=== PATIENT | male | born 1955 | race Caucasian/White ===

== ENCOUNTER 2024-07-28 14:17 | Inpatient (IN) | payer OTHER ==
[~2024-07-28] VITALS: Ht 188 cm; Wt 98.0 kg
[2024-07-28] MEDS: TraMADol HCL 50 MG TABLET PO ONE (15:25)
[2024-07-28 15:43] LABS: BASOPHILS % (AUTO) 1.5 % (0.0-2.0); EOSINOPHILS % (AUTO) 3.9 % (1.0-6.0); HEMOGLOBIN 12.7 g/dL (13.5-17.5); LYMPHOCYTES # (AUTO) 1.1 K/uL (1.0-4.8); LYMPHOCYTES % (AUTO) 19.3 % (22.0-44.0); MEAN CORPUSCULAR HEMOGLOBIN 30.2 pg (26.0-34.0); MEAN CORPUSCULAR HGB CONC 32.5 G/dL (31.0-37.0); MEAN CORPUSCULAR VOLUME 93 fL (80-100); MONOCYTES # (AUTO) 0.9 K/uL (0.1-1.0); MONOCYTES % (AUTO) 15.6 % (2.0-9.0); NEUTROPHILS # (AUTO) 3.4 K/uL (1.8-7.7); NEUTROPHILS % (AUTO) 59.7 % (40.0-70.0); PLATELET COUNT (AUTO) 153 K/uL (150-450); RED CELL DISTRIBUTION WIDTH 14.9 % (11.5-14.5); WHITE BLOOD COUNT (AUTO) 5.6 K/uL (4.5-11.0)
[2024-07-28 16:00] LABS: CALCIUM, TOTAL 8.9 mg/dL (8.8-10.5); CREATININE 6.41 mg/dL (0.60-1.30)
[2024-07-28 16:06] LABS: ALBUMIN 3.2 g/dL (3.4-5.0); BILIRUBIN,DIRECT 0.1 mg/dL (0.00-0.20); BILIRUBIN,TOTAL 0.8 mg/dL (0.1-1.0); TOTAL PROTEIN, SERUM 7.4 g/dL (6.4-8.2)
[2024-07-28 16:10] LABS: TROPONIN I-HIGH SENSITIVITY 16 ng/L (<76)
[2024-07-28 16:24] LABS: APPEARANCE,URINE CLEAR (CLEAR); BILIRUBIN,URINE NEGATIVE (NEGATIVE); COLOR,URINE COLORLESS (YELLOW); GLUCOSE, URINE (UA) 150-200 mg/dL (NEGATIVE); KETONES,URINE NEGATIVE (NEGATIVE); LEUKOCYTE ESTERASE ,URINE NEGATIVE (NEGATIVE); NITRATE,URINE NEGATIVE (NEGATIVE); OCCULT BLOOD,URINE SMALL (NEGATIVE); PROTEIN,URINE 100-200,SEE CONFIRM mg/dL (NEGATIVE); SPECIFIC GRAVITIY, URINE 1.009 (1.003-1.030); UROBILINOGEN,URINE <=1.0 mg/dL (<=1.0)
[2024-07-28 16:37] LABS: SULFOSALICYLIC ACID,URINE 3+ (Negative)
[2024-07-28 16:38] LABS: WBC,URINE 0-2 /HPF (0-5)
[2024-07-28 16:39] LABS: BACTERIA,URINE None Seen /HPF (None Seen)
[2024-07-28] MEDS ORDERED: ONDANSETRON HCL 4 MG/2 ML VIAL IVP PRN (20:15)
[2024-07-28] MEDS ORDERED: ZOLPIDEM TARTRATE 5 MG TABLET PO PRN (20:15)
[2024-07-28] MEDS ORDERED: BISACODYL 10 MG RECTAL RECTAL SUPPOSITORY PR PRN (20:15)
[2024-07-28] MEDS ORDERED: MAGNESIUM HYDROXIDE SUSPENSION 30 ML UDCUP PO PRN (20:15)
[2024-07-28] MEDS ORDERED: MORPHINE SULFATE 2 MG/ML SYRINGE IVP PRN (20:15)
[2024-07-28] MEDS: SODIUM CHLORIDE 0.9% 1,000 ML IV ONE (22:25)
[2024-07-28] MEDS: DOCUSATE SODIUM 100 MG CAPSULE PO SCH (22:25)
[2024-07-28 22:30] VITALS: BP 114/81; PULSE 95; RESP 18; TEMP 95.5; O2SAT 97
[2024-07-29] VITALS (11 sets, daily range): BP systolic 136–155; BP diastolic 87–109; PULSE 69–102; RESP 18–20; TEMP 97–98; O2SAT 20–99
[2024-07-29] MEDS: HEPARIN SODIUM,PORCINE 5,000 UNITS/ML VIAL SQ SCH
[2024-07-29] MEDS: TAMSULOSIN HCL 0.4 MG CAPSULE PO SCH (00:10)
[2024-07-29] MEDS: HYDROCODONE/ACETAMINOPHEN 5-325 MG TABLET PO PRN (03:43)
[2024-07-29 07:29] LABS: BASOPHILS % (AUTO) 0.7 % (0.0-2.0); EOSINOPHILS % (AUTO) 5.4 % (1.0-6.0); HEMATOCRIT 36.5 % (41-53); LYMPHOCYTES # (AUTO) 1.1 K/uL (1.0-4.8); LYMPHOCYTES % (AUTO) 20.8 % (22.0-44.0); MEAN CORPUSCULAR HEMOGLOBIN 30.3 pg (26.0-34.0); MEAN CORPUSCULAR HGB CONC 32.8 G/dL (31.0-37.0); MEAN CORPUSCULAR VOLUME 92 fL (80-100); MONOCYTES # (AUTO) 0.8 K/uL (0.1-1.0); MONOCYTES % (AUTO) 14.1 % (2.0-9.0); NEUTROPHILS # (AUTO) 3.2 K/uL (1.8-7.7); PLATELET COUNT (AUTO) 145 K/uL (150-450); RED BLOOD CELL COUNT(AUTO) 3.95 MIL/uL (4.50-5.90); RED CELL DISTRIBUTION WIDTH 14.8 % (11.5-14.5); WHITE BLOOD COUNT (AUTO) 5.4 K/uL (4.5-11.0)
[2024-07-29 07:37] LABS: CALCIUM, TOTAL 8.6 mg/dL (8.8-10.5); CREATININE 7.29 mg/dL (0.60-1.30); POTASSIUM 5.1 mmol/L (3.5-5.1)
[2024-07-29] MEDS: PANTOPRAZOLE SODIUM 40 MG DR TABLET PO SCH (08:14)
[2024-07-29] MEDS: ACETAMINOPHEN 325 MG TABLET PO PRN (08:18)
[2024-07-29] MEDS ORDERED: SEVE800T38 PO (09:53)
[2024-07-29] MEDS ORDERED: HYDR10TA31 PO (09:53)
[2024-07-29] MEDS ORDERED: FURO20 PO (09:53)
[2024-07-29] MEDS ORDERED: NITR0.4T52 SL (09:53)
[2024-07-29] MEDS ORDERED: PARI5VIA7 IVP (09:53)
[2024-07-29] MEDS ORDERED: AMLO-258 PO (09:53)
[2024-07-29] MEDS ORDERED: LORA10TA7 PO (09:53)
[2024-07-29] MEDS ORDERED: [UNRECOGNIZED DRUG - CODE] SQ (09:53)
[2024-07-29] MEDS ORDERED: CARV25 PO (09:53)
[2024-07-29] MEDS ORDERED: LOSA-382 PO (09:53)
[2024-07-29] MEDS: SEVELAMER CARBONATE 800 MG TABLET PO SCH (12:10)
[2024-07-29] MEDS: HydrALAZINE HCL 10 MG TABLET PO SCH (18:30)
[2024-07-29] MEDS: FUROSEMIDE 20 MG TABLET PO SCH (20:34)
[2024-07-29] MEDS: CARVEDILOL 25 MG TABLET PO SCH (20:34)
[2024-07-30 00:28] VITALS: BP 123/65; PULSE 84; RESP 20; TEMP 98.5; O2SAT 98
[2024-07-30 04:53] VITALS: BP 149/89; PULSE 94; RESP 20; TEMP 97.9; O2SAT 93
[2024-07-30 06:57] LABS: BASOPHILS % (AUTO) 0.8 % (0.0-2.0); EOSINOPHILS % (AUTO) 5.9 % (1.0-6.0); HEMATOCRIT 39.7 % (41-53); HEMOGLOBIN 13.1 g/dL (13.5-17.5); LYMPHOCYTES % (AUTO) 18.6 % (22.0-44.0); MEAN CORPUSCULAR HEMOGLOBIN 30.3 pg (26.0-34.0); MEAN CORPUSCULAR VOLUME 92 fL (80-100); MONOCYTES # (AUTO) 0.7 K/uL (0.1-1.0); MONOCYTES % (AUTO) 12.9 % (2.0-9.0); NEUTROPHILS # (AUTO) 3.5 K/uL (1.8-7.7); NEUTROPHILS % (AUTO) 61.8 % (40.0-70.0); PLATELET COUNT (AUTO) 180 K/uL (150-450); RED BLOOD CELL COUNT(AUTO) 4.33 MIL/uL (4.50-5.90); RED CELL DISTRIBUTION WIDTH 14.8 % (11.5-14.5); WHITE BLOOD COUNT (AUTO) 5.6 K/uL (4.5-11.0)
[2024-07-30 06:58] LABS: CALCIUM, TOTAL 9.2 mg/dL (8.8-10.5); CHOL/HDL RATIO 2.2 (4.2-7.3); CREATININE 5.95 mg/dL (0.60-1.30); POTASSIUM 5.2 mmol/L (3.5-5.1)
[2024-07-30 07:53] VITALS: BP 149/94; PULSE 79; RESP 20; TEMP 98.1; O2SAT 98
[2024-07-30] MEDS: AmLODIPine BESYLATE 10 MG TABLET PO SCH (08:04)
[2024-07-30] MEDS: LORATADINE 10 MG TABLET PO SCH (08:04)
[2024-07-30] MEDS: LOSARTAN POTASSIUM 50 MG TABLET PO SCH (08:09)
[2024-07-30] MEDS ORDERED: EPOE10006 SQ (12:07)
[2024-07-30] MEDS ORDERED: FURO80 PO (12:11)
[2024-07-30] MEDS ORDERED: TAMS0.4C94 PO (12:12)
[2024-07-30] MEDS ORDERED: ACET-2247 PO (12:13)
[2024-07-30] MEDS ORDERED: BISA10SU11 PR (12:13)
[2024-07-30] MEDS ORDERED: SODI5POW3 PO (12:16)
[2024-07-30] MEDS: SODIUM ZIRCONIUM CYCLOSILICATE 5 GM POWDER PACKET PO SCH (12:41)
[2024-07-30 13:15] VITALS: BP 153/88; PULSE 75; RESP 20; TEMP 98.2; O2SAT 98
[2024-07-30] MEDS ORDERED: FUROSEMIDE 20 MG TABLET PO SCH (21:00)
[2024-08-02 01:07] LABS: HEPATITIS C AB (EIA) Non Reactive (Non Reactive)
== END 2024-07-30 17:50 | DRG 438 ==
LOC: EMS 14:17 → EDH 20:19 → 6S 22:37 → 5S 07-29 16:30 → 5N 07-29 17:30
PROVIDERS: ADMIT Internal Medicine; ATTEND Internal Medicine
PROC: 5A1D70Z Performance of Urinary Filtration, Intermittent, Less than 6 Hours Per Day (ICD-10-PCS; principal; 2024-07-29)
DX: K85.90 Acute pancreatitis without necrosis or infection, unspecified (principal); N18.6 End stage renal disease; I12.0 Hypertensive chronic kidney disease with stage 5 chronic kidney disease or end stage renal disease; R34 Anuria and oliguria; Z99.2 Dependence on renal dialysis; I48.0 Paroxysmal atrial fibrillation; E11.22 Type 2 diabetes mellitus with diabetic chronic kidney disease; E78.00 Pure hypercholesterolemia, unspecified; E87.5 Hyperkalemia; D63.1 Anemia in chronic kidney disease; I25.10 Atherosclerotic heart disease of native coronary artery without angina pectoris; N40.1 Benign prostatic hyperplasia with lower urinary tract symptoms; R33.8 Other retention of urine; E87.6 Hypokalemia; Z79.899 Other long term (current) drug therapy; Z91.010 Allergy to peanuts
CPT/HCPCS: 74176; 76770; 76870; 80048; 80061; 80076; 81001; 81002; 83690; 84484; 85025; 86803; 87081; 87340; 90935; 93005; 99285; J1644

== ENCOUNTER 2024-11-29 16:04 | Inpatient (IN) | payer OTHER ==
[~2024-11-29] VITALS: Ht 188 cm; Wt 108.7 kg
[2024-11-29] VITALS (7 sets, daily range): BP systolic 113–133; BP diastolic 76–113; PULSE 99–116; RESP 18; TEMP 97.9; O2SAT 96–100
[~2024-11-29 16:04] MED LIST: ACET-2247 PO; AMLO-258 PO; BISA10SU11 PR; CARV25 PO; EPOE10006 SQ; FURO80TA4 PO; HYDR10TA31 PO; LORA10TA7 PO; LOSA-382 PO; NITR0.4T52 SL; PARI5VIA IVP; SEVE800T38 PO; SODI5POW3 PO; TAMS0.4C94 PO
[2024-11-29] MEDS: AMOX TR/POT CLAV 875 MG/125 MG TABLET PO ONE (18:13)
[2024-11-29 18:22] LABS: CALCIUM, TOTAL 9.6 mg/dL (8.8-10.5); CREATININE 6.82 mg/dL (0.60-1.30)
[2024-11-29 18:24] LABS: BASOPHILS % (AUTO) 1.2 % (0.0-2.0); HEMATOCRIT 31.7 % (41-53); HEMOGLOBIN 10.3 g/dL (13.5-17.5); LYMPHOCYTES % (AUTO) 8.9 % (22.0-44.0); MEAN CORPUSCULAR HEMOGLOBIN 31.2 pg (26.0-34.0); MEAN CORPUSCULAR HGB CONC 32.4 G/dL (31.0-37.0); MEAN CORPUSCULAR VOLUME 96 fL (80-100); MONOCYTES % (AUTO) 8.8 % (2.0-9.0); NEUTROPHILS # (AUTO) 7.6 K/uL (1.8-7.7); NEUTROPHILS % (AUTO) 68.1 % (40.0-70.0); PLATELET COUNT (AUTO) 268 K/uL (150-450); RED BLOOD CELL COUNT(AUTO) 3.29 MIL/uL (4.50-5.90); RED CELL DISTRIBUTION WIDTH 21.5 % (11.5-14.5); WHITE BLOOD COUNT (AUTO) 11.1 K/uL (4.5-11.0)
[2024-11-29] MEDS: SODIUM ZIRCONIUM CYCLOSILICATE 5 GM POWDER PACKET PO ONE (19:07)
[2024-11-29] MEDS: CALCIUM GLUCONATE 100 MG/ML 10 ML IVP ONE (19:08)
[2024-11-29] MEDS: INSULIN REGULAR, HUMAN 100 UNITS/ML IVP ONE (19:08)
[2024-11-29] MEDS: DEXTROSE 50%-WATER 25 GM/50 ML SYRINGE IVP ONE (19:09)
[2024-11-29] MEDS: DOXYCYCLINE HYCLATE 100 MG TABLET PO ONE (19:09)
[2024-11-29] MEDS ORDERED: NITROGLYCERIN 0.4 MG SUBLINGUAL TABLET #25 SL PRN (19:15)
[2024-11-29] MEDS ORDERED: ONDANSETRON HCL 4 MG/2 ML VIAL IVP PRN (19:15)
[2024-11-29] MEDS ORDERED: BISACODYL 10 MG RECTAL RECTAL SUPPOSITORY PR PRN (19:15)
[2024-11-29] MEDS ORDERED: VANCOMYCIN 1GM/WATER(PEG/NADA) 200 ML IV PRN (20:00)
[2024-11-29] MEDS: DOCUSATE SODIUM 100 MG CAPSULE PO SCH (20:07)
[2024-11-29] MEDS: VANCOMYCIN 1.75GM/WATER(PEG) 350 ML IV ONE (20:10)
[2024-11-29] MEDS: CARVEDILOL 25 MG TABLET PO SCH (20:11)
[2024-11-29] MEDS: TAMSULOSIN HCL 0.4 MG CAPSULE PO SCH (20:11)
[2024-11-29] MEDS: FUROSEMIDE 80 MG TABLET PO SCH (20:11)
[2024-11-29] MEDS: HydrALAZINE HCL 10 MG TABLET PO SCH (20:11)
[2024-11-29] MEDS: DiphenhydrAMINE HCL 25 MG CAPSULE PO ONE (21:11)
[2024-11-29 21:20] LABS: CALCIUM, TOTAL 9.4 mg/dL (8.8-10.5); CREATININE 7.04 mg/dL (0.60-1.30); POTASSIUM 5.7 mmol/L (3.5-5.1)
[2024-11-30] VITALS (8 sets, daily range): BP systolic 118–147; BP diastolic 72–101; PULSE 107–123; RESP 18–20; TEMP 97.8–98.8; O2SAT 94–97
[2024-11-30] MEDS: HEPARIN SODIUM,PORCINE 5,000 UNITS/ML VIAL SQ SCH
[2024-11-30] MEDS: SODIUM POLYSTYRENE SULFONATE 15 GM/60 ML SUSPENSION BOTTLE PO ONE (02:00)
[2024-11-30] MEDS: ACETAMINOPHEN 325 MG TABLET PO PRN (02:40)
[2024-11-30] MEDS ORDERED: INFLUENZA VIRUS VACCINE TVS (6MO+) 2024-25/PF 45 MCG/0.5 ML SYRINGE IM. ONE (07:00)
[2024-11-30 07:24] LABS: BASOPHILS % (AUTO) 1.1 % (0.0-2.0); EOSINOPHILS % (AUTO) 12.3 % (1.0-6.0); HEMATOCRIT 31.6 % (41-53); HEMOGLOBIN 10.4 g/dL (13.5-17.5); LYMPHOCYTES # (AUTO) 0.4 K/uL (1.0-4.8); LYMPHOCYTES % (AUTO) 4.2 % (22.0-44.0); MEAN CORPUSCULAR HEMOGLOBIN 31.7 pg (26.0-34.0); MEAN CORPUSCULAR VOLUME 96 fL (80-100); MONOCYTES # (AUTO) 0.6 K/uL (0.1-1.0); MONOCYTES % (AUTO) 6.3 % (2.0-9.0); NEUTROPHILS % (AUTO) 76.1 % (40.0-70.0); PLATELET COUNT (AUTO) 211 K/uL (150-450); RED BLOOD CELL COUNT(AUTO) 3.29 MIL/uL (4.50-5.90); RED CELL DISTRIBUTION WIDTH 20.8 % (11.5-14.5); WHITE BLOOD COUNT (AUTO) 9.2 K/uL (4.5-11.0)
[2024-11-30 07:31] LABS: CALCIUM, TOTAL 9.4 mg/dL (8.8-10.5); CREATININE 5.12 mg/dL (0.60-1.30); MAGNESIUM 1.9 mg/dL (1.80-2.40); POTASSIUM 4.7 mmol/L (3.5-5.1)
[2024-11-30] MEDS: EPOETIN ALFA 10,000 UNITS/ML VIAL SQ SCH (08:41)
[2024-11-30] MEDS: AmLODIPine BESYLATE 10 MG TABLET PO SCH (08:42)
[2024-11-30] MEDS: SEVELAMER CARBONATE 800 MG TABLET PO SCH (08:43)
[2024-11-30] MEDS ORDERED: LOSARTAN POTASSIUM 50 MG TABLET PO SCH (09:00)
[2024-11-30] MEDS ORDERED: SODIUM ZIRCONIUM CYCLOSILICATE 5 GM POWDER PACKET PO SCH (09:00)
[2024-11-30] MEDS: PARICALCITOL 5 MCG/1 ML VIAL IVP SCH (10:14)
[2024-11-30] MEDS: DiphenhydrAMINE HCL 50 MG/ML VIAL IVP ONE (10:14)
[2024-11-30] MEDS: DiphenhydrAMINE/ZINC ACET 30 GM CREAM TP SCH (11:50)
[2024-11-30] MEDS: PERMETHRIN 5% 60 GM CREAM TP ONE (11:50)
[2024-11-30] MEDS: LORATADINE 10 MG TABLET PO SCH (17:59)
[2024-11-30] MEDS: MORPHINE SULFATE 2 MG/ML SYRINGE IVP ONE (20:04)
[2024-12-01] MEDS: DiphenhydrAMINE HCL 50 MG/ML VIAL IVP PRN (03:09)
[2024-12-01 03:16] VITALS: BP 139/99; PULSE 105; RESP 20; TEMP 97.6; O2SAT 95
[2024-12-01 07:04] LABS: CREATININE 6.46 mg/dL (0.60-1.30); POTASSIUM 5.6 mmol/L (3.5-5.1); VANCOMYCIN,RANDOM 14.7 mcg/mL (25.0-50.0)
[2024-12-01] MEDS: DiphenhydrAMINE HCL 25 MG CAPSULE PO PRN (09:14)
[2024-12-01] MEDS: ASPIRIN 81 MG CHEWABLE TABLET PO SCH (12:15)
[2024-12-01] MEDS: OxyCODONE HCL/ACETAMINOPHEN 5-325 MG TABLET PO PRN (12:27)
[2024-12-01] MEDS: PERMETHRIN 5% 60 GM CREAM TP ONE (14:32)
[2024-12-01] MEDS: VANCOMYCIN 1GM/WATER(PEG/NADA) 200 ML IV ONE (15:56)
[2024-12-01 16:00] VITALS: BP 129/86; PULSE 111; RESP 18; TEMP 97.6; O2SAT 98
[2024-12-01] MEDS ORDERED: SODIUM CHLORIDE 0.9% 500 ML IV ONE (16:25)
[2024-12-02] VITALS (10 sets, daily range): BP systolic 117–187; BP diastolic 74–173; PULSE 81–104; RESP 18–19; TEMP 98–98.5; O2SAT 94–98
[2024-12-02 12:13] LABS: HEMATOCRIT 29.6 % (41-53); HEMOGLOBIN 9.5 g/dL (13.5-17.5); LYMPHOCYTES # (AUTO) 0.6 K/uL (1.0-4.8); LYMPHOCYTES % (AUTO) 9.6 % (22.0-44.0); MEAN CORPUSCULAR HEMOGLOBIN 30.5 pg (26.0-34.0); MEAN CORPUSCULAR HGB CONC 32.1 G/dL (31.0-37.0); MEAN CORPUSCULAR VOLUME 95 fL (80-100); MONOCYTES # (AUTO) 0.6 K/uL (0.1-1.0); MONOCYTES % (AUTO) 9.8 % (2.0-9.0); NEUTROPHILS # (AUTO) 3.4 K/uL (1.8-7.7); NEUTROPHILS % (AUTO) 58.4 % (40.0-70.0); PLATELET COUNT (AUTO) 183 K/uL (150-450); RED BLOOD CELL COUNT(AUTO) 3.12 MIL/uL (4.50-5.90); RED CELL DISTRIBUTION WIDTH 20.1 % (11.5-14.5); WHITE BLOOD COUNT (AUTO) 5.9 K/uL (4.5-11.0)
[2024-12-02 12:15] LABS: EOSINOPHILS % (AUTO) 21.2 % (1.0-6.0)
[2024-12-02 12:35] LABS: CALCIUM, TOTAL 8.9 mg/dL (8.8-10.5); CREATININE 4.94 mg/dL (0.60-1.30); POTASSIUM 4.5 mmol/L (3.5-5.1); THYROID STIMULATING HORMONE 2.07 uIU/mL (0.36-3.74)
[2024-12-02] MEDS: DiphenhydrAMINE HCL 50 MG/ML VIAL IVP PRN (13:06)
[2024-12-03 07:43] LABS: BASOPHILS % (AUTO) 1.4 % (0.0-2.0); HEMATOCRIT 30.5 % (41-53); LYMPHOCYTES # (AUTO) 0.7 K/uL (1.0-4.8); LYMPHOCYTES % (AUTO) 12.1 % (22.0-44.0); MEAN CORPUSCULAR HEMOGLOBIN 31.1 pg (26.0-34.0); MEAN CORPUSCULAR HGB CONC 32.8 G/dL (31.0-37.0); MEAN CORPUSCULAR VOLUME 95 fL (80-100); MONOCYTES # (AUTO) 0.6 K/uL (0.1-1.0); MONOCYTES % (AUTO) 9.2 % (2.0-9.0); NEUTROPHILS # (AUTO) 3.5 K/uL (1.8-7.7); PLATELET COUNT (AUTO) 200 K/uL (150-450); RED BLOOD CELL COUNT(AUTO) 3.21 MIL/uL (4.50-5.90)
[2024-12-03 07:50] LABS: EOSINOPHILS % (AUTO) 19.3 % (1.0-6.0)
[2024-12-03 08:03] LABS: CALCIUM, TOTAL 9.1 mg/dL (8.8-10.5); CREATININE 6.08 mg/dL (0.60-1.30); POTASSIUM 5.3 mmol/L (3.5-5.1); VANCOMYCIN,RANDOM 15.2 mcg/mL (25.0-50.0)
[2024-12-03 08:52] VITALS: BP 129/78; PULSE 119; RESP 20; TEMP 98.2; O2SAT 96
[2024-12-03] MEDS: SODIUM ZIRCONIUM CYCLOSILICATE 5 GM POWDER PACKET PO SCH (09:30)
[2024-12-03] MEDS: VANCOMYCIN 1GM/WATER(PEG/NADA) 200 ML IV ONE (09:40)
[2024-12-03 12:20] VITALS: BP 109/74; PULSE 102; RESP 19; TEMP 97.6; O2SAT 94
[2024-12-03 16:28] VITALS: BP 130/66; PULSE 101; RESP 19; TEMP 98; O2SAT 95
[2024-12-03 20:21] VITALS: BP 121/85; PULSE 111; RESP 19; TEMP 97.9; O2SAT 94
[2024-12-04] VITALS (10 sets, daily range): BP systolic 128–164; BP diastolic 82–103; PULSE 62–92; RESP 18–20; TEMP 98.2–98.5; O2SAT 96–99
[2024-12-04] MEDS: EPOETIN ALFA 10,000 UNITS/ML 2 ML VIAL SQ SCH (08:04)
[2024-12-04 08:47] LABS: BASOPHILS % (AUTO) 1.6 % (0.0-2.0); HEMATOCRIT 30.8 % (41-53); HEMOGLOBIN 9.9 g/dL (13.5-17.5); LYMPHOCYTES # (AUTO) 0.8 K/uL (1.0-4.8); LYMPHOCYTES % (AUTO) 11.2 % (22.0-44.0); MEAN CORPUSCULAR HEMOGLOBIN 30.3 pg (26.0-34.0); MEAN CORPUSCULAR VOLUME 95 fL (80-100); MONOCYTES # (AUTO) 0.6 K/uL (0.1-1.0); NEUTROPHILS # (AUTO) 3.9 K/uL (1.8-7.7); NEUTROPHILS % (AUTO) 57.5 % (40.0-70.0); PLATELET COUNT (AUTO) 194 K/uL (150-450); RED BLOOD CELL COUNT(AUTO) 3.26 MIL/uL (4.50-5.90); RED CELL DISTRIBUTION WIDTH 19.5 % (11.5-14.5); WHITE BLOOD COUNT (AUTO) 6.8 K/uL (4.5-11.0)
[2024-12-04 08:59] LABS: EOSINOPHILS % (AUTO) 20.7 % (1.0-6.0)
[2024-12-04 09:05] LABS: CREATININE 7.4 mg/dL (0.60-1.30); POTASSIUM 5.6 mmol/L (3.5-5.1)
[2024-12-04] MEDS ORDERED: ASPI81TA45 PO (15:02)
[2024-12-04] MEDS ORDERED: DIPH30C TP (15:04)
[2024-12-04] MEDS ORDERED: AMOX-457 PO (15:06)
== END 2024-12-04 19:00 | DRG 154 ==
LOC: EMS 16:04 → EDH 19:12 → 5S 11-30 01:25
PROVIDERS: ADMIT Internal Medicine; ATTEND Internal Medicine
PROC: 09910ZZ Drainage of Left External Ear, Open Approach (ICD-10-PCS; principal; 2024-11-29)
PROC: 5A1D70Z Performance of Urinary Filtration, Intermittent, Less than 6 Hours Per Day (ICD-10-PCS; 2024-11-29)
PROC: 5A1D70Z Performance of Urinary Filtration, Intermittent, Less than 6 Hours Per Day (ICD-10-PCS; 2024-12-02)
PROC: 5A1D70Z Performance of Urinary Filtration, Intermittent, Less than 6 Hours Per Day (ICD-10-PCS; 2024-12-04)
DX: H60.12 Cellulitis of left external ear (principal); I50.33 Acute on chronic diastolic (congestive) heart failure; N18.6 End stage renal disease; R65.10 Systemic inflammatory response syndrome (SIRS) of non-infectious origin without acute organ dysfunction; I13.2 Hypertensive heart and chronic kidney disease with heart failure and with stage 5 chronic kidney disease, or end stage renal disease; H60.02 Abscess of left external ear; B86 Scabies; D63.1 Anemia in chronic kidney disease; K21.9 Gastro-esophageal reflux disease without esophagitis; E11.22 Type 2 diabetes mellitus with diabetic chronic kidney disease; Z20.822 Contact with and (suspected) exposure to COVID-19; E87.5 Hyperkalemia; I48.0 Paroxysmal atrial fibrillation; Z99.2 Dependence on renal dialysis; E78.00 Pure hypercholesterolemia, unspecified; F17.200 Nicotine dependence, unspecified, uncomplicated; I25.10 Atherosclerotic heart disease of native coronary artery without angina pectoris; N40.0 Benign prostatic hyperplasia without lower urinary tract symptoms; Z71.6 Tobacco abuse counseling; Z91.010 Allergy to peanuts; Z79.899 Other long term (current) drug therapy
CPT/HCPCS: 36245; 36569; 71045; 76937; 80048; 80202; 83036; 83735; 84132; 84443; 85025; 87340; 90935; 93005; 93306; 99285; G0378; J0610; J0885; J1200; J1644; J1815; J2270; J2501; J7040; 36415-L1; 36415-TC